=== PATIENT | female | born 1995 | race Caucasian/White ===

== ENCOUNTER 2018-07-26 10:46 | Day surgery (SDC) | payer OTHER ==
[~2018-07-26 10:46] MED LIST: ATENOLOL; COZAAR25 MG PO; PRILOSEC PO
[2018-07-26] MEDS ORDERED: NEXIUM 24HR20 MG PO (13:15)
== END 2018-07-26 14:20 | disposition home or self-care (01) ==
LOC: AMB-ENDOS 10:46
DX: D13.1 Benign neoplasm of stomach (principal)